=== PATIENT | male | born 1960 | race Caucasian/White ===

== ENCOUNTER 2021-11-12 13:49 | Inpatient (IN) | payer OTHER ==
[2021-11-12 15:48] VITALS: BMI 27.8
[2021-11-12] MEDS ORDERED: LOPERAMIDE HCL 2 MG CAPSULE PO PRN (19:46)
[2021-11-12] MEDS ORDERED: P-EPHED 60MG/TRIPROLIDI 2.5MG TABLET PO PRN (19:46)
[2021-11-12] MEDS ORDERED: MAGNESIUM CITRATE 300 ML BOTTLE PO PRN (19:46)
[2021-11-12] MEDS ORDERED: MAG HYDROX/AL HYDROX/SIMETH 30 ML UNIT-DOSE CUP PO PRN (19:46)
[2021-11-12] MEDS ORDERED: MAGNESIUM HYDROX 2400MG/30ML ORAL SUSPENSION 30 ML CUP PO PRN (19:46)
[2021-11-13] MEDS: LACTULOSE 20 GM/30 ML UDC (FOR ORAL USE ONLY) PO SCH ×4 (00:25→21:42)
[2021-11-13] MEDS: THIAMINE HCL 100 MG TABLET (FP) PO SCH ×2 (00:25→21:42)
[2021-11-13] MEDS: MELATONIN 5 MG TABLETS PO SCH ×2 (00:25→21:42)
[2021-11-13] MEDS: PRENATAL VITAMINS W/ FOLIC ACID TABLET (FP) PO SCH ×2 (00:25→10:36)
[2021-11-13] MEDS ORDERED: TUBERCULIN PPD 5 TU/0.1ML VIAL ID ONE (00:32)
[2021-11-13] MEDS: SOTALOL HCL 80 MG TABLET (FP) PO SCH ×3 (01:15→21:42)
[2021-11-13] MEDS: FOLIC ACID 1 MG TABLET (FP) PO SCH (10:36)
[2021-11-13] MEDS: TAMSULOSIN HCL 0.4 MG CAP PO SCH (10:36)
[2021-11-13] MEDS: FAMOTIDINE 20 MG TABLET PO SCH (10:36)
[2021-11-13] MEDS: VITAMIN B COMPLEX W/C COMBO TABLET (FP) PO SCH (11:05)
[2021-11-13 12:30] LABS: HEMATOCRIT 38.3 % (35.4-49); HEMOGLOBIN 13.2 GM/dL (11.7-16.9); MCH 36.6 pg (25.7-33.7); MCHC 34.5 g/dl (32.0-35.9); MEAN CELL VOLUME 105.9 fl (80-96); PLATELET COUNT 73 10^3/uL (134-434); RBC 3.61 M/mm3 (4.00-5.60); RDW 15.9 % (11.9-15.9)
[2021-11-13 12:36] LABS: CALCIUM 7.9 mg/dL (8.5-10.1)
[2021-11-13 12:37] LABS: ALBUMIN 2.2 g/dl (3.4-5.0); BLOOD UREA NITROGEN 4.9 mg/dL (7-18)
[2021-11-13 12:40] LABS: CREATININE 0.7 mg/dL (0.55-1.3)
[2021-11-13 12:42] LABS: BILIRUBIN,TOTAL 6.7 mg/dL (0.2-1); TOT PROT 5.5 g/dl (6.4-8.2)
[2021-11-13 13:01] LABS: SYPHILIS W/ RPR CONF NON-REACTIVE (NONREACTIVE)
[2021-11-13] MEDS: APIXABAN 5 MG TABLET PO SCH (21:52)
[2021-11-14] MEDS: LACTULOSE 20 GM/30 ML UDC (FOR ORAL USE ONLY) PO SCH ×3 (06:57→21:21)
[2021-11-14] MEDS: FOLIC ACID 1 MG TABLET (FP) PO SCH (10:19)
[2021-11-14] MEDS: APIXABAN 5 MG TABLET PO SCH ×2 (10:19→21:21)
[2021-11-14] MEDS: TAMSULOSIN HCL 0.4 MG CAP PO SCH (10:19)
[2021-11-14] MEDS: VITAMIN B COMPLEX W/C COMBO TABLET (FP) PO SCH (10:19)
[2021-11-14] MEDS: PRENATAL VITAMINS W/ FOLIC ACID TABLET (FP) PO SCH (10:19)
[2021-11-14] MEDS: FAMOTIDINE 20 MG TABLET PO SCH (10:19)
[2021-11-14] MEDS: SOTALOL HCL 80 MG TABLET (FP) PO SCH ×2 (10:20→21:21)
[2021-11-14 10:47] LABS: URINE APPEARANCE CLEAR; URINE BILIRUBIN 1+ (NEGATIVE); URINE COLOR DK YELLOW; URINE GLUCOSE (UA) NEGATIVE (NEGATIVE); URINE KETONE NEGATIVE (NEGATIVE); URINE LEUK ESTERASE NEGATIVE (NEGATIVE); URINE NITRITE NEGATIVE (NEGATIVE); URINE PROTEIN NEGATIVE (NEGATIVE)
[2021-11-14] MEDS: MELATONIN 5 MG TABLETS PO SCH (21:20)
[2021-11-14] MEDS: THIAMINE HCL 100 MG TABLET (FP) PO SCH (21:20)
[2021-11-15] MEDS: LACTULOSE 20 GM/30 ML UDC (FOR ORAL USE ONLY) PO SCH ×3 (06:39→21:16)
[2021-11-15] MEDS: TAMSULOSIN HCL 0.4 MG CAP PO SCH (10:21)
[2021-11-15] MEDS: PRENATAL VITAMINS W/ FOLIC ACID TABLET (FP) PO SCH (10:21)
[2021-11-15] MEDS: VITAMIN B COMPLEX W/C COMBO TABLET (FP) PO SCH (10:21)
[2021-11-15] MEDS: SOTALOL HCL 80 MG TABLET (FP) PO SCH ×2 (10:22→21:15)
[2021-11-15] MEDS: FAMOTIDINE 20 MG TABLET PO SCH (10:22)
[2021-11-15] MEDS: APIXABAN 5 MG TABLET PO SCH ×2 (10:22→21:15)
[2021-11-15] MEDS: FOLIC ACID 1 MG TABLET (FP) PO SCH (10:22)
[2021-11-15] MEDS: guaiFENesin 200 MG/10 ML 10 ML UNIT-DOSE CUPS PO PRN (14:31)
[2021-11-15 18:07] LABS: SARS-CoV-2 NAA Not Detected (Not Detected)
[2021-11-15] MEDS: MELATONIN 5 MG TABLETS PO SCH (21:15)
[2021-11-15] MEDS: THIAMINE HCL 100 MG TABLET (FP) PO SCH (21:16)
[2021-11-16] MEDS: LACTULOSE 20 GM/30 ML UDC (FOR ORAL USE ONLY) PO SCH ×3 (06:14→21:19)
[2021-11-16] MEDS: SOTALOL HCL 80 MG TABLET (FP) PO SCH ×2 (10:18→21:19)
[2021-11-16] MEDS: TAMSULOSIN HCL 0.4 MG CAP PO SCH (10:18)
[2021-11-16] MEDS: APIXABAN 5 MG TABLET PO SCH ×2 (10:18→21:19)
[2021-11-16] MEDS: FAMOTIDINE 20 MG TABLET PO SCH (10:19)
[2021-11-16] MEDS: PRENATAL VITAMINS W/ FOLIC ACID TABLET (FP) PO SCH (10:19)
[2021-11-16] MEDS: FOLIC ACID 1 MG TABLET (FP) PO SCH (10:19)
[2021-11-16] MEDS: VITAMIN B COMPLEX W/C COMBO TABLET (FP) PO SCH (10:20)
[2021-11-16] MEDS: guaiFENesin 200 MG/10 ML 10 ML UNIT-DOSE CUPS PO PRN (15:44)
[2021-11-16] MEDS: THIAMINE HCL 100 MG TABLET (FP) PO SCH (21:19)
[2021-11-16] MEDS: MELATONIN 5 MG TABLETS PO SCH (21:19)
[2021-11-17] MEDS: LACTULOSE 20 GM/30 ML UDC (FOR ORAL USE ONLY) PO SCH ×3 (06:25→21:15)
[2021-11-17] MEDS: FOLIC ACID 1 MG TABLET (FP) PO SCH (10:42)
[2021-11-17] MEDS: PRENATAL VITAMINS W/ FOLIC ACID TABLET (FP) PO SCH (10:42)
[2021-11-17] MEDS: TAMSULOSIN HCL 0.4 MG CAP PO SCH (10:42)
[2021-11-17] MEDS: FAMOTIDINE 20 MG TABLET PO SCH (10:42)
[2021-11-17] MEDS: SOTALOL HCL 80 MG TABLET (FP) PO SCH ×2 (10:43→21:15)
[2021-11-17] MEDS: APIXABAN 5 MG TABLET PO SCH ×2 (10:43→21:15)
[2021-11-17] MEDS: VITAMIN B COMPLEX W/C COMBO TABLET (FP) PO SCH (10:45)
[2021-11-17] MEDS: MELATONIN 5 MG TABLETS PO SCH (21:15)
[2021-11-17] MEDS: THIAMINE HCL 100 MG TABLET (FP) PO SCH (21:15)
[2021-11-18] MEDS: LACTULOSE 20 GM/30 ML UDC (FOR ORAL USE ONLY) PO SCH ×3 (06:24→21:07)
[2021-11-18] MEDS ORDERED: LYTES/YERBA SANTA 60 ML SPRAY MM PRN (09:09)
[2021-11-18] MEDS: PRENATAL VITAMINS W/ FOLIC ACID TABLET (FP) PO SCH (10:28)
[2021-11-18] MEDS: TAMSULOSIN HCL 0.4 MG CAP PO SCH ×3 (10:28→21:08)
[2021-11-18] MEDS: APIXABAN 5 MG TABLET PO SCH ×2 (10:29→21:07)
[2021-11-18] MEDS: SOTALOL HCL 80 MG TABLET (FP) PO SCH ×2 (10:29→21:07)
[2021-11-18] MEDS: FOLIC ACID 1 MG TABLET (FP) PO SCH (10:29)
[2021-11-18] MEDS: FAMOTIDINE 20 MG TABLET PO SCH (10:29)
[2021-11-18] MEDS: VITAMIN B COMPLEX W/C COMBO TABLET (FP) PO SCH (10:32)
[2021-11-18] MEDS: THIAMINE HCL 100 MG TABLET (FP) PO SCH (21:07)
[2021-11-18] MEDS: MELATONIN 5 MG TABLETS PO SCH (21:08)
[2021-11-18] MEDS: MIRTAZAPINE 15 MG TABLET (FP) PO SCH (21:09)
[2021-11-19] MEDS: LACTULOSE 20 GM/30 ML UDC (FOR ORAL USE ONLY) PO SCH ×3 (07:36→21:52)
[2021-11-19] MEDS: FOLIC ACID 1 MG TABLET (FP) PO SCH (09:54)
[2021-11-19] MEDS: PRENATAL VITAMINS W/ FOLIC ACID TABLET (FP) PO SCH (09:54)
[2021-11-19] MEDS: VITAMIN B COMPLEX W/C COMBO TABLET (FP) PO SCH (09:54)
[2021-11-19] MEDS: APIXABAN 5 MG TABLET PO SCH ×2 (09:54→21:52)
[2021-11-19] MEDS: SOTALOL HCL 80 MG TABLET (FP) PO SCH ×2 (09:55→21:52)
[2021-11-19] MEDS: FAMOTIDINE 20 MG TABLET PO SCH (09:55)
[2021-11-19] MEDS: MELATONIN 5 MG TABLETS PO SCH (21:52)
[2021-11-19] MEDS: MIRTAZAPINE 15 MG TABLET (FP) PO SCH (21:52)
[2021-11-19] MEDS: TAMSULOSIN HCL 0.4 MG CAP PO SCH (21:52)
[2021-11-19] MEDS: THIAMINE HCL 100 MG TABLET (FP) PO SCH (21:53)
[2021-11-20] MEDS: LACTULOSE 20 GM/30 ML UDC (FOR ORAL USE ONLY) PO SCH ×3 (06:22→21:46)
[2021-11-20] MEDS: SOTALOL HCL 80 MG TABLET (FP) PO SCH ×2 (10:38→21:45)
[2021-11-20] MEDS: FOLIC ACID 1 MG TABLET (FP) PO SCH (10:38)
[2021-11-20] MEDS: VITAMIN B COMPLEX W/C COMBO TABLET (FP) PO SCH (10:38)
[2021-11-20] MEDS: APIXABAN 5 MG TABLET PO SCH ×2 (10:38→21:44)
[2021-11-20] MEDS: PRENATAL VITAMINS W/ FOLIC ACID TABLET (FP) PO SCH (10:38)
[2021-11-20] MEDS: FAMOTIDINE 20 MG TABLET PO SCH (10:41)
[2021-11-20] MEDS: TAMSULOSIN HCL 0.4 MG CAP PO SCH (21:44)
[2021-11-20] MEDS: MELATONIN 5 MG TABLETS PO SCH (21:45)
[2021-11-20] MEDS: MIRTAZAPINE 15 MG TABLET (FP) PO SCH (21:45)
[2021-11-20] MEDS: THIAMINE HCL 100 MG TABLET (FP) PO SCH (21:46)
[2021-11-21] MEDS: LACTULOSE 20 GM/30 ML UDC (FOR ORAL USE ONLY) PO SCH ×3 (06:45→21:26)
[2021-11-21] MEDS: PRENATAL VITAMINS W/ FOLIC ACID TABLET (FP) PO SCH (10:23)
[2021-11-21] MEDS: VITAMIN B COMPLEX W/C COMBO TABLET (FP) PO SCH (10:23)
[2021-11-21] MEDS: SOTALOL HCL 80 MG TABLET (FP) PO SCH ×2 (10:23→21:23)
[2021-11-21] MEDS: FAMOTIDINE 20 MG TABLET PO SCH (10:23)
[2021-11-21] MEDS: FOLIC ACID 1 MG TABLET (FP) PO SCH (10:23)
[2021-11-21] MEDS: APIXABAN 5 MG TABLET PO SCH ×2 (10:24→21:23)
[2021-11-21] MEDS: THIAMINE HCL 100 MG TABLET (FP) PO SCH (21:24)
[2021-11-21] MEDS: TAMSULOSIN HCL 0.4 MG CAP PO SCH (21:24)
[2021-11-21] MEDS: MELATONIN 5 MG TABLETS PO SCH (21:24)
[2021-11-21] MEDS: MIRTAZAPINE 15 MG TABLET (FP) PO SCH (21:25)
[2021-11-22] MEDS: LACTULOSE 20 GM/30 ML UDC (FOR ORAL USE ONLY) PO SCH ×3 (06:12→21:28)
[2021-11-22] MEDS: FOLIC ACID 1 MG TABLET (FP) PO SCH (09:39)
[2021-11-22] MEDS: VITAMIN B COMPLEX W/C COMBO TABLET (FP) PO SCH (09:39)
[2021-11-22] MEDS: APIXABAN 5 MG TABLET PO SCH ×2 (09:39→21:28)
[2021-11-22] MEDS: FAMOTIDINE 20 MG TABLET PO SCH (09:39)
[2021-11-22] MEDS: PRENATAL VITAMINS W/ FOLIC ACID TABLET (FP) PO SCH (09:39)
[2021-11-22] MEDS: SOTALOL HCL 80 MG TABLET (FP) PO SCH ×2 (09:40→21:28)
[2021-11-22] MEDS: MELATONIN 5 MG TABLETS PO SCH (21:28)
[2021-11-22] MEDS: TAMSULOSIN HCL 0.4 MG CAP PO SCH (21:28)
[2021-11-22] MEDS: THIAMINE HCL 100 MG TABLET (FP) PO SCH (21:28)
[2021-11-22] MEDS: MIRTAZAPINE 15 MG TABLET (FP) PO SCH (21:28)
[2021-11-23] MEDS: LACTULOSE 20 GM/30 ML UDC (FOR ORAL USE ONLY) PO SCH ×3 (06:05→21:06)
[2021-11-23] MEDS: SOTALOL HCL 80 MG TABLET (FP) PO SCH ×2 (09:40→21:06)
[2021-11-23] MEDS: FOLIC ACID 1 MG TABLET (FP) PO SCH (09:41)
[2021-11-23] MEDS: FAMOTIDINE 20 MG TABLET PO SCH (09:41)
[2021-11-23] MEDS: APIXABAN 5 MG TABLET PO SCH ×2 (09:41→21:06)
[2021-11-23] MEDS: VITAMIN B COMPLEX W/C COMBO TABLET (FP) PO SCH (09:42)
[2021-11-23] MEDS: PRENATAL VITAMINS W/ FOLIC ACID TABLET (FP) PO SCH (09:42)
[2021-11-23 11:18] LABS: BASO % 0.3 % (0-2.0); EOS % 1.8 % (0-4.5); HEMATOCRIT 38.1 % (35.4-49); HEMOGLOBIN 12.9 GM/dL (11.7-16.9); LYMPH % 21.4 % (8-40); MCH 35.5 pg (25.7-33.7); MCHC 33.8 g/dl (32.0-35.9); MEAN CELL VOLUME 105.1 fl (80-96); MEAN PLT VOLUME 11.5 fl (7.5-11.1); MONO % 8.7 % (3.8-10.2); NEUT % 67.8 % (42.8-82.8); PLATELET COUNT 74 10^3/uL (134-434); RBC 3.63 M/mm3 (4.00-5.60); RDW 15.1 % (11.9-15.9); WHITE BLOOD COUNT 5.5 K/mm3 (4.0-10.0)
[2021-11-23 12:15] LABS: ANISOCYTOSIS 1+; MACROCYTOSIS 0
[2021-11-23] MEDS: MELATONIN 5 MG TABLETS PO SCH (21:06)
[2021-11-23] MEDS: THIAMINE HCL 100 MG TABLET (FP) PO SCH (21:06)
[2021-11-23] MEDS: TAMSULOSIN HCL 0.4 MG CAP PO SCH (21:06)
[2021-11-23] MEDS: MIRTAZAPINE 15 MG TABLET (FP) PO SCH (21:06)
[2021-11-24] MEDS: LACTULOSE 20 GM/30 ML UDC (FOR ORAL USE ONLY) PO SCH ×3 (06:16→21:26)
[2021-11-24] MEDS: FAMOTIDINE 20 MG TABLET PO SCH (09:28)
[2021-11-24] MEDS: PRENATAL VITAMINS W/ FOLIC ACID TABLET (FP) PO SCH (09:28)
[2021-11-24] MEDS: FOLIC ACID 1 MG TABLET (FP) PO SCH (09:29)
[2021-11-24] MEDS: SOTALOL HCL 80 MG TABLET (FP) PO SCH ×2 (09:29→21:27)
[2021-11-24] MEDS: APIXABAN 5 MG TABLET PO SCH ×2 (09:29→21:27)
[2021-11-24] MEDS: VITAMIN B COMPLEX W/C COMBO TABLET (FP) PO SCH (09:30)
[2021-11-24] MEDS: THIAMINE HCL 100 MG TABLET (FP) PO SCH (21:26)
[2021-11-24] MEDS: MELATONIN 5 MG TABLETS PO SCH (21:26)
[2021-11-24] MEDS: MIRTAZAPINE 15 MG TABLET (FP) PO SCH (21:27)
[2021-11-24] MEDS: TAMSULOSIN HCL 0.4 MG CAP PO SCH (21:27)
[2021-11-25] MEDS: LACTULOSE 20 GM/30 ML UDC (FOR ORAL USE ONLY) PO SCH ×3 (06:24→21:08)
[2021-11-25] MEDS: SOTALOL HCL 80 MG TABLET (FP) PO SCH ×2 (12:11→21:07)
[2021-11-25] MEDS: PRENATAL VITAMINS W/ FOLIC ACID TABLET (FP) PO SCH (12:12)
[2021-11-25] MEDS: FAMOTIDINE 20 MG TABLET PO SCH (12:12)
[2021-11-25] MEDS: VITAMIN B COMPLEX W/C COMBO TABLET (FP) PO SCH (12:12)
[2021-11-25] MEDS: FOLIC ACID 1 MG TABLET (FP) PO SCH (12:12)
[2021-11-25] MEDS: APIXABAN 5 MG TABLET PO SCH ×2 (12:12→21:07)
[2021-11-25] MEDS: TAMSULOSIN HCL 0.4 MG CAP PO SCH (21:07)
[2021-11-25] MEDS: MELATONIN 5 MG TABLETS PO SCH (21:07)
[2021-11-25] MEDS: THIAMINE HCL 100 MG TABLET (FP) PO SCH (21:07)
[2021-11-25] MEDS: MIRTAZAPINE 15 MG TABLET (FP) PO SCH (21:07)
[2021-11-26] MEDS: LACTULOSE 20 GM/30 ML UDC (FOR ORAL USE ONLY) PO SCH ×3 (06:19→22:00)
[2021-11-26] MEDS: FOLIC ACID 1 MG TABLET (FP) PO SCH (10:07)
[2021-11-26] MEDS: FAMOTIDINE 20 MG TABLET PO SCH (10:07)
[2021-11-26] MEDS: APIXABAN 5 MG TABLET PO SCH ×2 (10:07→22:00)
[2021-11-26] MEDS: PRENATAL VITAMINS W/ FOLIC ACID TABLET (FP) PO SCH (10:07)
[2021-11-26] MEDS: SOTALOL HCL 80 MG TABLET (FP) PO SCH ×2 (10:08→22:04)
[2021-11-26] MEDS: VITAMIN B COMPLEX W/C COMBO TABLET (FP) PO SCH (10:08)
[2021-11-26] MEDS: TAMSULOSIN HCL 0.4 MG CAP PO SCH (22:00)
[2021-11-26] MEDS: MIRTAZAPINE 15 MG TABLET (FP) PO SCH (22:00)
[2021-11-26] MEDS: THIAMINE HCL 100 MG TABLET (FP) PO SCH (22:00)
[2021-11-26] MEDS: MELATONIN 5 MG TABLETS PO SCH (22:00)
[2021-11-27] MEDS: LACTULOSE 20 GM/30 ML UDC (FOR ORAL USE ONLY) PO SCH ×3 (06:00→21:06)
[2021-11-27] MEDS: FAMOTIDINE 20 MG TABLET PO SCH (10:00)
[2021-11-27] MEDS: APIXABAN 5 MG TABLET PO SCH ×2 (10:00→21:06)
[2021-11-27] MEDS: SOTALOL HCL 80 MG TABLET (FP) PO SCH ×2 (10:00→21:06)
[2021-11-27] MEDS: VITAMIN B COMPLEX W/C COMBO TABLET (FP) PO SCH (10:00)
[2021-11-27] MEDS: PRENATAL VITAMINS W/ FOLIC ACID TABLET (FP) PO SCH (10:00)
[2021-11-27] MEDS: FOLIC ACID 1 MG TABLET (FP) PO SCH (10:00)
[2021-11-27] MEDS: MELATONIN 5 MG TABLETS PO SCH (21:06)
[2021-11-27] MEDS: TAMSULOSIN HCL 0.4 MG CAP PO SCH (21:06)
[2021-11-27] MEDS: THIAMINE HCL 100 MG TABLET (FP) PO SCH (21:06)
[2021-11-27] MEDS: MIRTAZAPINE 15 MG TABLET (FP) PO SCH (21:06)
[2021-11-28] MEDS: LACTULOSE 20 GM/30 ML UDC (FOR ORAL USE ONLY) PO SCH ×3 (05:42→21:28)
[2021-11-28] MEDS: FAMOTIDINE 20 MG TABLET PO SCH (10:28)
[2021-11-28] MEDS: VITAMIN B COMPLEX W/C COMBO TABLET (FP) PO SCH (10:28)
[2021-11-28] MEDS: SOTALOL HCL 80 MG TABLET (FP) PO SCH ×2 (10:28→21:28)
[2021-11-28] MEDS: APIXABAN 5 MG TABLET PO SCH ×2 (10:28→21:28)
[2021-11-28] MEDS: FOLIC ACID 1 MG TABLET (FP) PO SCH (10:28)
[2021-11-28] MEDS: PRENATAL VITAMINS W/ FOLIC ACID TABLET (FP) PO SCH (10:29)
[2021-11-28] MEDS: MIRTAZAPINE 15 MG TABLET (FP) PO SCH (21:28)
[2021-11-28] MEDS: THIAMINE HCL 100 MG TABLET (FP) PO SCH (21:28)
[2021-11-28] MEDS: TAMSULOSIN HCL 0.4 MG CAP PO SCH (21:28)
[2021-11-28] MEDS: MELATONIN 5 MG TABLETS PO SCH (21:28)
[2021-11-29] MEDS: LACTULOSE 20 GM/30 ML UDC (FOR ORAL USE ONLY) PO SCH (06:24)
[2021-11-29 07:07] VITALS: BP 120/70; PULSE 90; TEMP 98
[2021-11-29] MEDS: SOTALOL HCL 80 MG TABLET (FP) PO SCH (09:09)
[2021-11-29] MEDS: FAMOTIDINE 20 MG TABLET PO SCH (09:09)
[2021-11-29] MEDS: PRENATAL VITAMINS W/ FOLIC ACID TABLET (FP) PO SCH (09:09)
[2021-11-29] MEDS: APIXABAN 5 MG TABLET PO SCH (09:09)
[2021-11-29] MEDS: FOLIC ACID 1 MG TABLET (FP) PO SCH (09:09)
[2021-11-29] MEDS: VITAMIN B COMPLEX W/C COMBO TABLET (FP) PO SCH (09:09)
== END 2021-11-29 10:13 | disposition home or self-care (01) | DRG 772 ==
LOC: YASAS 13:49 → Y3W 23:05
PROVIDERS: ADMIT Allergy & Immunology; ATTEND Allergy & Immunology
PROC: HZ42ZZZ Group Counseling for Substance Abuse Treatment, Cognitive-Behavioral (ICD-10-PCS; principal; 2021-11-12)
DX: F10.20 Alcohol dependence, uncomplicated (principal); F41.9 Anxiety disorder, unspecified; F32.A Depression, unspecified; D69.6 Thrombocytopenia, unspecified; I10 Essential (primary) hypertension; I48.91 Unspecified atrial fibrillation; K74.60 Unspecified cirrhosis of liver; Z79.01 Long term (current) use of anticoagulants; Z95.0 Presence of cardiac pacemaker; Z95.818 Presence of other cardiac implants and grafts; Z56.0 Unemployment, unspecified
CPT/HCPCS: 36415; 80053; 81003; 82962; 85025; 85027; 86780; 86803; 93005; 93010; C9803-CS; U0003; U0005